=== PATIENT | female | born 1945 | race Caucasian/White ===

== ENCOUNTER 2019-10-17 10:09 | Emergency (ER) | payer MEDICARE, SELFPAY ==
[2019-10-17 10:20] VITALS: BP 178/78; PULSE 83; RESP 16; TEMP 36.8; O2SAT 95
[2019-10-17 10:33] VITALS: RESP 16
--- NOTE | 2019-10-17 10:45 | DI.US_ITS ---
EXAM: US LOWER EXTREMITY VENOUS RT CLINICAL HISTORY: pain/sweling. TECHNIQUE: Ultrasound performed using standard protocol. COMPARISON: No exams were available for comparison FINDINGS: Duplex venous ultrasound was performed according to the usual protocol. The deep veins are freely com pressible throughout and there is normal flow augmentation with manual calf compression. 2D and Doppl er evaluation are unremarkable. IMPRESSION: No evidence of deep venous thrombosis of the right lower extremity DATA REPOSITORY:
--- NOTE | 2019-10-17 10:45 | DI.RAD_ITS ---
EXAM: XR KNEE RT 4V+ CLINICAL HISTORY: Lateral pain TECHNIQUE: COMPARISON: No exams were available for comparison FINDINGS: Four views were obtained. No bony or soft tissue abnormality seen. IMPRESSION:
--- NOTE | 2019-10-17 10:51 | ED.GENADUL_ITS ---
Discharge Plan Disposition Patient Disposition: HOME Condition: Stable Discharge Details Chief Complaint: Vascular Clinical Impression: Knee pain Primary Care Provider: Carisa,Local ED Provider: Miguel Lopez Home Meds and New Rx's Prescriptions: Continued multivitamin Tablet 1 tab PO DAILY RF: 0 aspirin 81 mg Tablet,Delayed Release (Dr/Ec) 81 mg PO DAILY RF: 0 rosuvastatin [Crestor] 5 mg Tablet 5 mg PO DAILY RF: 0 metoprolol tartrate 25 mg Tablet 12.5 mg PO PRNRF: 0 calcium carbonate-vitamin D3 [Calcium 500 + D] 500 mg(1,250mg) -200 unit Tablet 1 tab PO DAILY RF: 0 Discharge Instructions Instructions: Knee Pain (ED) Additional Instructions: Rest, elevate, cool compresses every 2 hours for 20 days. [id number] medications as directed for symptomatic control. Advance activity as tolerated. I have given you the name and number of our local orthopedic, I do recommend following up in the next 2 weeks if symptoms are not improving with conservative therapy. I have also placed you on the care management team to help expedite outpatient care and local primary care follow-up. Referrals: Don Mendes MD [ [facility] STAFF PHYSICIAN] - Medical Decision Making 74-year-old female who has a second home here from [place] presents after injuring her right knee roughly 10 days ago. Certainly appears musculoskeletal in nature however she is concerned about a DVT. Will obtain ultrasound. We will also obtain x-ray of the right knee for further evaluation. We will also give her a referral to orthopedics and place her on the care management list to help expedite outpatient care seeing she is here for nearly 4 months out of the year. Ultrasound of right leg and x-ray of right knee unremarkable per radiologist. Discussed findings with patient. She is relieved and has no additional questions or concerns. As above we will provide a referral to orthopedics and will place her on the care management list. Patient will continue to take tozh-oxz-xcqigvi medications present meta control, declined crutches. Imaging Data Radiologic Study: Attestation: I personally reviewed and interpreted this imaging study as follows: Radiologist's impression: Ultrasound of right lower extremity and x-ray right knee unremarkable per radiology HPI General Mode of arrival: ambulatory . Date/Time Provider Initiated Documentation: 10/17/19 10:13 . Limitations to Documentation: no limitations . Information obtained by: patient . HPI Narrative: This is a 74-year-old female who reports 10 days ago leaning over, injuring her right lateral knee on the banister of a stair, direct blow and twisting mechanism. She reports she was unable to bear weight for the next 24-36 hours and since then the area has slowly gotten better. Now she notes some discomfort to her right calf in the to p of her right foot, she is concerned of a DVT. Denies history of DVT. Denies any chest pain or shortness of breath. Reports the pain is mild at rest worse with weightbearing. Denies fever, rash, pain in any other joint. Related Data Home Medications Medication Instructions Recorded Confirmed aspirin 81 mg PO DAILY 10/17/19 10/17/19 calcium carbonate-vitamin D3 1 tab PO DAILY 10/17/19 10/17/19 [Calcium 500 + D] metoprolol tartrate 12.5 mg PO PRN 10/17/19 multivitamin 1 tab PO DAILY 10/17/19 10/17/19 rosuvastatin [Crestor] 5 mg PO DAILY 10/17/19 10/17/19 Allergies Allergy/AdvReac Type Severity Reaction Status Date / Time No Known Allergies Allergy Unverified 10/17/19 10:24 General Stated Complaint: Orthopedic KEITH: 3 Review of Systems Constitutional Constitutional: Denies fever(s) and Denies weakness Cardiovascular Cardiovascular: Denies chest pain and Denies dyspnea Respiratory Respiratory: Denies cough and Denies dyspnea Musculoskeletal Musculoskeletal: Denies numbness and Denies tingling Integumentary/Breasts Skin/Breast: Denies rash Neurologic Neurologic: Denies numbness, Denies tingling and Denies weakness [facility] Social History Smoking/Tobacco Use Status: Never Alcohol Intake: current Alcohol Intake frequency: 0-2 drinks per day Alcohol type: wine Substance use type: does not use Exam Const General: cooperative, healthy appearing, comfortable and no acute distress Orientation: alert, awake and oriented x3 HENMT Head: normal to inspection, normocephalic and atraumatic Mouth: moist mucous membranes Eyes Conjunctivae: conjunctivae normal Neck Neck: normal visual inspection, trachea midline and supple Resp Effort & Inspection: normal respiratory effort and able to speak in complete sentences Auscultation: clear to auscultation bilaterally Cardio Rate: regular rate Rhythm: regular rhythm Skin General skin exam: no rashes or lesions noted Neuro General: patient alert, patient awake, moves all extremities and no focal motor deficits Sensory Exam: no sensory deficits noted Extrem Right lower extremity: normal capillary refill and knee Details: tenderness Location: of the lateral joint line, normal ROM, knee ligament exam normal and other (Positive Homans sign); no swelling, no deformity and no unusual warmth Psych Appearance: grossly normal Mental Status: mental status grossly normal Course Vital Signs Vital signs: Vital Signs Temperature 36.8 C 10/17/19 10:20 Pulse 83 10/17/19 10:20 Respiratory Rate 16 10/17/19 10:20 Blood Pressure 178/78 H 10/17/19 10:20 Pulse Oximetry 95 10/17/19 10:20 Temperature 36.8 C 10/17/19 10:20 Temperature Source Skin 10/17/19 10:20 Pulse 83 10/17/19 10:20 Respiratory Rate 16 10/17/19 10:33 Respiratory Effort Non-Labored 10/17/19 10:33 Respiratory Depth Normal 10/17/19 10:33 Respiratory Pattern Normal 10/17/19 10:33 Blood Pressure 178/78 H 10/17/19 10:20 Blood Pressure Position Sitting 10/17/19 10:20 Pulse Oximetry 95 10/17/19 10:20 Oxygen Delivery Method Room Air 10/17/19 10:20 Oxygen Flow Rate 0 10/17/19 10:20 Pain Level 6 10/17/19 10:33
--- NOTE | 2019-10-17 11:43 | NUR.NOTE ---
Nursing Note: Referral for PCP for summer residency given to Integrity Manager. Batsheva Price
[2019-10-17 12:17] VITALS: BP 178/78; PULSE 80; RESP 16; TEMP 36.8; O2SAT 95
--- NOTE | 2019-10-18 09:42 | PDOC.ERCMPRO ---
- If Service Date Differs Date of service: 10/18/19 Time of Service: 09:42 Care Management Progress Note At the request of ED provider, CM coordinates a referral to Dr. Yap (teledoc) of [facility] to assist [place] in establishing care with a local PCP. [place] reportedly injured her knee and requires a follow-up to ED visit within 3 weeks.
== END 2019-10-17 12:18 | disposition home or self-care (01) ==
PROVIDERS: Emergency Provider Physician Assistant; PCP Internal Medicine
DX: S89.91XA Unspecified injury of right lower leg, initial encounter (principal); W22.8XXA Striking against or struck by other objects, initial encounter; X50.9XXA Other and unspecified overexertion or strenuous movements or postures, initial encounter; M79.661 Pain in right lower leg
CPT/HCPCS: 99284; 73564; 93971

== ENCOUNTER 2019-10-20 11:34 | Outpatient (CLI) | payer MEDICARE, SELFPAY ==
[2019-10-23 18:59] LABS: SARS-CoV-2 RNA Undetected (Undetected); SARS-CoV-2 Specimen Source Nasopharynx
== END 2019-10-20 11:54 ==
PROVIDERS: Visit Provider Family Medicine
DX: Z03.818 Encounter for observation for suspected exposure to other biological agents ruled out (principal)
CPT/HCPCS: U0003

== ENCOUNTER 2021-11-19 08:59 | Emergency (ER) | payer MEDICARE, SELFPAY ==
[2021-11-19 09:15] VITALS: BP 187/75; PULSE 77; RESP 14; TEMP 37.6; O2SAT 98
--- NOTE | 2021-11-19 09:30 | W.ED.GENAD ---
Discharge Plan Disposition Patient Disposition: HOME Condition: Improving Discharge Details Clinical Impression: Distal radius fracture, left Primary Care Provider: CarisaLocal ED Provider: Chava Coreas Home Meds and New Rx's Prescriptions: Continued multivitamin Tablet 1 tab PO DAILY aspirin 81 mg Tablet,Delayed Release (Dr/Ec) 81 mg PO DAILY rosuvastatin [Crestor] 5 mg Tablet 5 mg PO DAILY metoprolol tartrate 25 mg Tablet 12.5 mg PO PRN calcium carbonate-vitamin D3 [Calcium 500 + D] 500 mg(1,250mg) -200 unit Tablet 1 tab PO DAILY losartan 25 mg Tablet 25 mg PO BID Discharge Instructions Instructions: Wrist Fracture in Adults (ED) Additional Instructions: Please follow-up with [facility] November 24 at 11 AM. The office #[phone]. Keep the arm elevated above the level of the heart to reduce pain and swelling. Sling as needed for comfort while awake and out of bed. Tylenol as needed for pain. May use ibuprofen as needed for pain. May use the provided hydrocodone with 325 mg of acetaminophen if needed for severe or breakthrough pain. Do not take this medication at the same time as taking other acetaminophen. Return if you develop cold/blue/numbness of the fingertips, increasing pain, or any other acute concerns. 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 She lives at [facility] [place] and is here until [place]. She was planning pickleball, stumbled twisting her left ankle and falling on outstretched left wrist. She did not strike her head or lose consciousness. No neck/chest/back injury. She had immediate pain and deformity of the left wrist. No numbness or weakness. She presents with left wrist dinner fork deformity. She also has mild tenderness of the left fifth metatarsal. Referred for x-ray. This reveals a left radius fracture that is comminuted and mildly impacted. This is discussed with Dr. Mello, and the patient was placed in sugar-tong splint and she may follow-up in orthopedics. X-ray was obtained of L Foot with no evidence of fracture. Patient stable and improving. She is consented for the use of a small number of narcotic analgesia if needed. She will follow-up in orthopedic clinic on November 24. HPI General Mode of arrival: ambulatory. Date/Time Provider Initiated Documentation: 11/19/21 09:01. Limitations to Documentation: no limitations. Information obtained by: patient. History of Present Illness 76 year old F presents to the emergency department with the chief complaint of Left wrist pain after fall on outstretched hand, described as moderate, Quality is described as dull and constant, and is localized to the left and upper extremity. Patient reports no radiation. Patient started experiencing this hour(s) and it has been constant. Rest improves symptom(s), Movement worsens symptoms . Patient did receive the following treatments prior to arrival, cold therapy Related Data Home Medications Medication Instructions Recorded Confirmed aspirin 81 mg tablet,delayed 81 mg PO DAILY 10/17/19 11/19/21 release calcium carbonate 500 mg-vitamin 1 tab PO DAILY 10/17/19 11/19/21 D3 5 mcg (200 unit) tablet (Calcium 500 + D) metoprolol tartrate 25 mg tablet 12.5 mg PO PRN 10/17/19 multivitamin 1 tab PO DAILY 10/17/19 11/19/21 rosuvastatin 5 mg tablet (Crestor) 5 mg PO DAILY 10/17/19 11/19/21 losartan 25 mg tablet 25 mg PO BID 11/19/21 11/19/21 Allergies Allergy/AdvReac Type Severity Reaction Status Date / Time Penicillins Allergy Hives Unverified 11/19/21 09:18 General Stated Complaint: Orthopedic KEITH: 3 Review of Systems Narrative: Rolled her left ankle. No other injury. No numbness or tingling. Otherwise well. 7 systems reviewed and otherwise negative PFSH All Active Problems (Updated 11/19/21 @ 10:30 by Chava Coreas MD) Distal radius fracture, left (Acute) Social History Smoking/Tobacco Use Status: Never Smoking risk assessment performed?: Yes Alcohol Intake: current Alcohol Intake frequency: 0-2 drinks per day Alcohol type: wine Substance use type: does not use Do you feel safe at home: Yes Do you feel safe in your relationship?: Yes Exam Narrative Exam Narrative: GEN: awake, alert, oriented 3. Pleasant, well groomed, interactive. HEAD: Normocephalic, atraumatic EYES: PERRL, EOMI NECK: Full ROM, no CHARLENE, no menigismus CHEST/RESP: Nontender, clear to auscultation bilateral, no wheeze/rhonchi/rales CARDIOVASCULAR: RRR, no murmur, rub zoie. 2+ Rad pulse bilateral EXT: Full range of motion left wrist. Dorsal tenderness and swelling. Demonstrates normal distal sensation and motor function of radial/ulnar/median nerves; capillary refill less than 2secs Neuro: Grossly normal neurologic exam, conversant, interactive. Psych: Speech fluent, thoughts congruent, affect normal Course Vital Signs Vital signs: Vital Signs Temperature 37.6 C H 11/19/21 09:15 Pulse 77 11/19/21 09:15 Respiratory Rate 14 11/19/21 09:15 Blood Pressure 187/75 H 11/19/21 09:15 Pulse Oximetry 98 11/19/21 09:15 Temperature 37.6 C H 11/19/21 09:15 Temperature Source Temporal Artery Scan 11/19/21 09:15 Pulse 77 11/19/21 09:15 Respiratory Rate 14 11/19/21 09:15 Respiratory Effort Non-Labored 11/19/21 09:19 Blood Pressure 187/75 H 11/19/21 09:15 Blood Pressure Position Supine 11/19/21 09:15 Pulse Oximetry 98 11/19/21 09:15 Oxygen Delivery Method Room Air 11/19/21 09:15 Oxygen Flow Rate 0 11/19/21 09:15 Pain Level 10 11/19/21 09:19 Procedures Orthopedic Splinting/Casting Injury #1: Side: left Upper Extremity Injury Location: wrist Upper Extremity Immobilizer: sugartong splint PAWSS Have you Been Recently Intoxicated or Drunk Within the Last 30 days?: No Have you Ever Experienced Previous Episodes of Alcohol Withdrawal?: No Have you ever Experienced Withdrawal Seizures?: No Have you ever Experienced Delirium Tremens(DT)s?: No Have you ever undergone Alcohol Rehabilitation Treatment (i.e, inpt ot outpatient treatment programs)?: No Have you ever Experienced Blackouts?: No Have you ever Combined Alcohol with other Downers within the last 90 days?: No Have you ever Combined Alcohol with any other Substance of Abuse during the last 90 days?: No Positive Blood Alcohol level on Presentation? [PCS.BAL]: No Evidence of Increased Autonomic Activity (i.e. HR>120, tremor, sweating, agitation, nausea)?: No Result: 0
--- NOTE | 2021-11-19 09:42 | DI.RAD_ITS ---
Exam(s) XR WRIST LT COMPLETE EXAM: XR WRIST LT COMPLETE CLINICAL HISTORY: deformed wrist. TECHNIQUE: 2D digital imaging was performed of the left wrist. Four images were obtained. PA, obli que and lateral views were obtained. COMPARISON: No exams were available for comparison FINDINGS: BONES: There is an acute comminuted intra-articular fracture of the distal left radius. The fracture is mildly impacted. There also appears to be a mildly displaced ulnar styloid process fracture. JOINTS: The carpal bones are normally aligned. SOFT TISSUE: Normal. IMPRESSION: 1. Comminuted, mildly impacted intra-articular fracture of the distal radius. 2. Question of ulnar styloid process fracture. DATA REPOSITORY: RADIATION DOSE DELIVERED:
[2021-11-19] MEDS: Acetaminophen 500 MG TAB 1000 MG PO (09:51)
--- NOTE | 2021-11-19 10:20 | DI.RAD_ITS ---
Exam(s) XR FOOT LT COMPLETE EXAM: XR FOOT LT COMPLETE CLINICAL HISTORY: lateral pain. TECHNIQUE: 2D digital imaging was performed of the left foot. Three images were obtained. AP, obli que and lateral views were obtained. COMPARISON: No exams were available for comparison FINDINGS: BONES: No acute fracture is present. No bony destructive lesion is seen. JOINTS: No dislocation present. SOFT TISSUE: Normal. IMPRESSION: Unremarkable radiographs of the left foot. DATA REPOSITORY: RADIATION DOSE DELIVERED:
== END 2021-11-19 10:42 | disposition home or self-care (01) ==
PROVIDERS: Emergency Provider Emergency Medicine
DX: S52.502A Unspecified fracture of the lower end of left radius, initial encounter for closed fracture (principal); G89.11 Acute pain due to trauma; M79.672 Pain in left foot; W19.XXXA Unspecified fall, initial encounter; X50.1XXA Overexertion from prolonged static or awkward postures, initial encounter
CPT/HCPCS: 29125; 99284; 73110; 73630

== ENCOUNTER 2021-11-24 11:50 | Outpatient (CLI) | payer MEDICARE, SELFPAY ==
--- NOTE | 2021-11-24 11:30 | DI.RAD_ITS ---
Exam(s) XR WRIST LT LIMITED EXAM: XR WRIST LT LIMITED CLINICAL HISTORY: eval L wrist frx TECHNIQUE: COMPARISON: CR XR WRIST LT COMPLETE from 11/19/2021 FINDINGS: Two views were obtained and show previous described fracture of the distal radius with associated uln ar styloid fracture. No gross interval change in alignment of the fracture fragments comparison with prior examination of November 19. IMPRESSION: RADIATION DOSE DELIVERED: Total DLP
== END 2021-11-24 11:51 | disposition home or self-care (01) ==
LOC: DIORS 11:50
PROVIDERS: Visit Provider Student in an Organized Health Care Education/Training Program
DX: S52.502D Unspecified fracture of the lower end of left radius, subsequent encounter for closed fracture with routine healing (principal); X58.XXXD Exposure to other specified factors, subsequent encounter; S52.572A Other intraarticular fracture of lower end of left radius, initial encounter for closed fracture
CPT/HCPCS: 99213; 73100

== ENCOUNTER 2021-11-24 12:23 | Outpatient (CLI) | payer MEDICARE, SELFPAY ==
[2021-11-24 14:30] LABS: Source Nasal/Nares
[2021-11-24 16:43] LABS: COVID-19 PCR Negative (Negative)
== END 2021-11-24 12:24 | disposition home or self-care (01) ==
LOC: LBO 12:23
PROVIDERS: Visit Provider Student in an Organized Health Care Education/Training Program
DX: Z20.822 Contact with and (suspected) exposure to COVID-19 (principal); Z01.818 Encounter for other preprocedural examination
CPT/HCPCS: 87635; 99213; 73100

== ENCOUNTER 2021-11-25 09:39 | Day surgery (SDC) | payer MEDICARE, SELFPAY ==
--- NOTE | 2021-11-25 09:50 | PDOC.DSDIS_ITS ---
Discharge Plan Disposition Patient Disposition: HOME Condition: Good Discharge Details Reason For Visit: Left distal radius fracture Attending Provider: Don Mendes Primary Care Provider: ,Local Home Meds and New Rx's Prescriptions: New acetaminophen 500 mg tablet 500 mg PO Q6H PRN (Reason: pain) Qty: 60 2RF ibuprofen 600 mg tablet 600 mg PO TID PRN (Reason: pain) Qty: 60 0RF oxycodone 5 mg tablet 5 mg PO Q6H PRN (Reason: severe post-operative pain) Qty: 6 0RF Rx Instructions: Take one tablet up to every 6 hours as needed for severe pain Continued multivitamin Tablet 1 tab PO DAILY aspirin 81 mg Tablet,Delayed Release (Dr/Ec) 81 mg PO DAILY rosuvastatin [Crestor] 5 mg Tablet 5 mg PO DAILY metoprolol tartrate 25 mg Tablet 12.5 mg PO PRN PRN calcium carbonate-vitamin D3 [Calcium 500 + D] 500 mg(1,250mg) -200 unit Tablet 1 tab PO DAILY losartan 25 mg Tablet 25 mg PO BID Discontinued hydrocodone-acetaminophen 5-325 mg tablet 1 tab PO Q4H MDD 30mg PRN (Reason: pain) Qty: 10 0RF Discharge Instructions Additional Instructions: Wrist Fracture Fixation Discharge Instructions Activity: You should keep the hand/wrist elevated as much as possible for the first few days. You may use the other fingers as tolerated but avoid trying to do too much too soon. You may perform light activities with the splint in place. Dressing/Cast: Your splint should stay in place at all times. Do NOT get it wet. You may loosen the PAGE wrap if you feel it is too tight and then re-wrap more loosely. Medications: - You should take Tylenol and Ibuprofen for baseline pain control. - You have been prescribed a stronger pain medication, Oxycodone, for breakthrough pain. - You may apply ice over the wrist, just double bag so it doesn't get wet. Follow-up: 10-14 days Referrals: Don Mendes MD [ [facility] STAFF PHYSICIAN] - Equipment/Supplies: Splint and Sling Activity:: Elevate Remove Dressings/Wound Care:: Do Not Remove Shower/Bathe:: Cover Diet:: As Tolerated Discharge Orders Discharge Orders: Discharge Order (Routine); Ordered 11/25/21 Ordered By: Minerva Jerez DS: Diagnosis Discharge Diagnosis (1) Intra-articular fracture of distal end of left radius with volar angulation: Status: Acute
[2021-11-25 10:07] VITALS: BP 162/66; PULSE 68; RESP 16; TEMP 36.4; O2SAT 98
[2021-11-25] MEDS: Lactated Ringers 1,000 ML 80 ML IV ×2 (10:13→13:55)
[2021-11-25 10:36] VITALS: BP 133/65; PULSE 78; RESP 16; TEMP 36.5; O2SAT 99
--- NOTE | 2021-11-25 11:00 | ANES.PREOP_ITS ---
General Info Date of Service Date Performed: 11/25/21 Height: 5 ft 4 in Weight: 61.9 kg Body Mass Index (BMI): 23.4 Surgical Procedure: Operation Date: 11/25/21 13:40 Proposed Procedure Side Surgeon p Wrist ORIF Distal Radius Left Don Mendes MD Meds Allergies and Home Medications Allergies Allergy/AdvReac Type Severity Reaction Status Date / Time Penicillins Allergy Hives Verified 11/25/21 09:46 Home Medication Medication Instructions Recorded aspirin 81 mg tablet,delayed 81 mg PO DAILY 10/17/19 release calcium carbonate 500 mg-vitamin 1 tab PO DAILY 10/17/19 D3 5 mcg (200 unit) tablet (Calcium 500 + D) metoprolol tartrate 25 mg tablet 12.5 mg PO PRN PRN 10/17/19 multivitamin 1 tab PO DAILY 10/17/19 rosuvastatin 5 mg tablet (Crestor) 5 mg PO DAILY 10/17/19 losartan 25 mg tablet 25 mg PO BID 11/19/21 acetaminophen 500 mg tablet 500 mg PO Q6H PRN pain #60 tabs 11/25/21 ibuprofen 600 mg tablet 600 mg PO TID PRN pain #60 tabs 11/25/21 oxycodone 5 mg tablet 5 mg PO Q6H PRN severe 11/25/21 post-operative pain #6 tabs Current Visit Medications: Current Medications Generic Name Dose Route Start Last Admin Trade Name Freq PRN Reason Stop Dose Admin Acetaminophen 650 mg 11/25/21 09:49 Acetaminophen 325 Mg Tab PO Q4H PRN PRN Ringer's Solution 1,000 mls @ 80 mls/hr 11/25/21 06:00 IV 12/24/21 23:59 INFUSION [facility] Cefazolin Sodium/Dextrose 2 gm in 50 mls @ 100 mls/hr 11/25/21 06:00 Ancef Duplex IVPB 11/25/21 16:00 PREOP [facility] IV Miscellaneous Supplies 1 each 11/25/21 06:00 Iv Access IV 12/24/21 23:59 DIRECTED ESTEFANY Oxycodone HCl 5 mg 11/25/21 09:51 Oxycodone 5 Mg Tab PO Q3H PRN PRN Pain Sodium Chloride 0 ml 11/25/21 06:00 Normal Saline Flush 10 Ml Syr IV 12/24/21 23:59 PRN PRN Sodium Chloride 0 ml 11/25/21 06:00 Normal Saline 10 Ml Vial IJ 12/24/21 23:59 DIRECTED PRN Sterile Water 0 ml 11/25/21 06:00 Water,Injection,Sterile 10 Ml Vial IJ 12/24/21 23:59 DIRECTED PRN PFSH Active Problems Active Problems: Problem Status Onset Code Distal radius fracture, left S52.502A Intra-articular fracture of distal end of left radius with volar angulation S52.572A Medical History Medical History HLD (hyperlipidemia) HTN (hypertension) Surgical History Surgical History (Updated 11/25/21 @ 09:58 by Fabiola Montoya) History of cataract surgery Status post Mohs surgery Tobacco Smoking/Tobacco Use Status: Never Alcohol Alcohol Intake: current Alcohol intake frequency: 0-2 drinks per day Alcohol type: wine Substance Use Substance use type: does not use Vital Signs and Lab Results Vital Signs Most Recent Vital Signs in EMR: Most Recent Vital Signs Temp Pulse Resp BP Pulse Ox 36.5 C 78 16 133/65 99 11/25/21 10:36 11/25/21 10:36 11/25/21 10:36 11/25/21 10:36 11/25/21 10:36 Lab Results Blood Type / Crossmatch: No Data to Display Complete Blood Count: No Data to Display Complete Metabolic Panel: No Data to Display Liver Function Panel: No Data to Display Coagulation Panel: No Data to Display Cardiac Panel: No Data to Display Arterial Blood Gas: No Data to Display Venous Blood Gas: No Data to Display Pancreas Panel: No Data to Display Thyroid Panel: 2 No Data to Display Infectious Disease: Coronavirus (COVID-19)(PCR) Negative (Negative) 11/24/21 12:25 Coronavirus 2019 Source Nasal/Nares 11/24/21 12:25 Blood Cultures: No Data to Display Toxicology Panel: No Data to Display Anesthesia Assessment and Plan Anesthesia History Personal History: No History of Anesthesia Complications Family History: No Family History of Anesthesia Complications Exercise Tolerance Exercise Tolerance: Metabolic Equivalents>4 Pertinent Negatives Pertinent Negatives: No Symptoms of GERD, No Major Cardiovascular Symptoms or Complaints and No Major Pulmonary Symptoms or Complaints Cardiac & Pulmonary Exam Cardiac Exam: Normal S1/S2 Heart Sounds Pulmonary Exam: Clear Bilateral Breath Sounds Implantable Cardiac Device Does patient have a Pacemaker or an ICD?: No Airway Exam Known Difficult Airway: No Mallampati Class: 2 Mouth Opening: Normal (> 3cm) Thyromental Distance: Greater than 3 cm Neck Range of Motion: Full ROM Neck Circumference: Normal Teeth Condition: Normal Dentition ASA Classification ASA Score: ASA 2 Emergency Case?: No NPO Status NPO Status: NPO Clears >2 hours, Solids >8 hours Anesthesia Plan Resuscitation Status: Full Code Anesthesia Technique: Primary Nerve Block Airway Planned: Natural Airway Monitors Used: Standard Monitors
[2021-11-25 11:01] VITALS: BMI 23.4
--- NOTE | 2021-11-25 11:07 | W.ANESNERVE ---
Nerve Block Single Injection Procedure Date and Time Date Performed: 11/25/21 Procedure Start: 10:38 Location Where Procedure Performed Procedure Location: Day Surgery Unit Reason Performed: Postoperative Analgesia Requesting Provider: Don Mendes Timeout Performed Timeout Performed: Yes Monitoring Used ECG, Blood Pressure, SpO2 and See EMR for corresponding vital signs Sterility Sterility: Hand Hygiene, Surgical Cap, Surgical Mask, Sterile Gloves and Chlorhexidine Sedation Given During Procedure Sedation Given (Indicate Dose Given): Versed IV Dose:: 2mg Patient Mental Status Patient Mental Status: Sedate with meaningful communication Nerve Block 1st Nerve Block: Laterality: Left Block Type: Supraclavicular Needle / Catheter Used: 80mm SonoPlex II Local Anesthetic Bolus (Indicate Dose Given): Lidocaine used for local infiltration of skin, Injected in 3-5ml increments after negative blood aspiration and Bupivacaine 0.5% Dose:: 20mL Additives (Indicate Dose Given): None Ultrasound: Sterile probe cover and gel used Ultrasound Image Saved?: Yes Nerve Stimulator: Not Used Paresthesia: None Procedure Tolerated: No Complications Procedure Outcome: Successful Performed By: Eliana Mcneil
--- NOTE | 2021-11-25 12:15 | DI.RAD_ITS ---
Exam(s) XR WRIST LT LIMITED EXAM: XR WRIST LT LIMITED CLINICAL HISTORY: LEFT DISTAL RADIUS FRACTURE TECHNIQUE: 2D and realtime digital imaging was performed. CONTRAST MATERIAL: Refer to procedure report. COMPARISON: CR XR WRIST LT LIMITED from 11/24/2021 FINDINGS: Fluoroscopy was provided for Dr. Mendes during the performance of a reduction and internal fixatio n of the distal radial fracture. Please refer to the procedure report for complete details. Ka,r=0.37 mGy IMPRESSION: RADIATION DOSE DELIVERED:
[2021-11-25] MEDS: ceFAZolin 2 GM/50 ML BAG IVPB (12:48)
[2021-11-25] MEDS: Lidocaine 1.5 % Pres-Free W/EPI 1/200,000 30 ML VIAL (13:12)
[2021-11-25 14:13] VITALS: BP 141/62; PULSE 68; RESP 18; TEMP 36.3; O2SAT 96
--- NOTE | 2021-11-25 14:18 | ROE_ITS ---
Date of service: 11/25/21 Time of Service: 14:05 Operative Note Operative Note DATE OF PROCEDURE: 11/25/21 PRE-OP DIAGNOSIS: Left Distal Radius Fracture POST-OP DIAGNOSIS: same PROCEDURE: Open Reduction and Internal Fixation of Left Distal Radius SURGEON: Don Mendes [employer] MACHINE OPERATOR: Minerva Jerez ANESTHESIA TYPE: MAC and Primary Nerve Block Refer to Anesthesia Record ESTIMATED BLOOD LOSS: 25 PATHOLOGY: none sent COMPLICATIONS: None Patient was transported to: same day Patient's condition: stable Indications: Pelon is a 76 year old female who I have seen for a distal radius fracture. Given the deformity, displacement, fracture pattern, and effect on daily function, I recommended surgical fixation. I reviewed the risk of the procedure to include bleeding, infection co-pay, stiffness, damage to nerves and vessels, damage to muscles and tendons, malunion, nonunion, hardware prominence, tendon rupture, need for repeat procedures. Despite these risks, the patient elected to proceed. Findings: There is a distal radius fracture which had 2 intra-articular portions. It was reduced and fixed with a Synthes volar locking plate. Procedure Description: [place] was greeted in the preoperative holding area. The correct patient and site was confirmed and marked. The history and physical was updated. The consent was reviewed the patient and signed. The patient was administered regional anesthetic, supraclavicular block, in the DSU. The patient was taken to the operating room and placed in the supine position. All bony problems were well- padded. The left arm was placed onto a radiolucent hand table. A nonsterile tourniquet was placed high up on the arm but not used. Prophylactic antibiotics in the form of cefazolin were administered. The left arm was prepped with ChloraPrep and draped in a standard fashion. A timeout was performed for safe surgery. The proposed surgical site was injected with 1.5% lidocaine with epinephrine. A standard longitudinal incision was made overlying the flexor carpi radialis tendon starting at the distal wrist crease and moving proximally. The skin was incised sharply. The flexor carpi radialis tendon and its sheath is identified. The sheath was opened. The tendon was moved ulnarly in the floor of the sheath was incised. Blunt dissection the flexor pollicis longus muscle belly and tendon were also made radially exposing the pronator quadratus and the distal radius. The printer quadratus was elevated with an ulnar-based flap. This exposed the volar distal radius and the fracture. A draper elevator was used for full exposure of the volar surface of the distal radius. The primary fracture line was exposed. Using a series of elevators, curettes, and knife, the fracture was fully debrided of any fibrous tissue and callus formation. There were 2 main fracture line through the volar aspect of distal radius. One was incomplete, the more proximal 1. The other was more complete and more distal. There is volar subluxation of the carpus. This is able to be reduced with dorsally directed pressure. The radial styloid was also flattened but with traction of the thumb I was able to pull the radial styloid out to correct position. This was confirmed with fluoroscopy. An appropriately sized Synthes volar locking plate was then placed onto the bony surface of the distal radius. A single K wire was placed through the distal end. And a K wire was placed through the proximal aspect of the plate to hold in gross position. I maintain pressure on the proximal aspect the plate for reduction. Fluoroscopy was once again used to confirm appropriate positioning of the plate on the distal radius. Given the volar displaced fracture pattern I went ahead and placed a 0.7 mm cortex screw in the sliding hole of the plate to reduce the plate onto the bone and buttress the fracture fragment while maintaining reduction. The screw was placed with excellent reduction of the plate down to the bone. X-ray was once again confirmed that the plate is in g ood position and the fracture was reduced. I then placed a nonlocking 2.4 millimeter screw in the distal row of screws to help reduce the distal radius to the plate. Once again, this was confirmed to be in good position. I then placed locking screws in the distal row of the plate. Given the lack of comminution I only placed the distal row of screws. This was confirmed to be in a good position on the x-ray. The cortical screw did not have as much purchase I would like and therefore it was removed for a locking screw. The 2 empty holes of the proximal plate were then filled with locking 2.7 millimeter screws. Final x-rays were obtained which demonstrated adequate reduction and positioning of hardware. The dorsal sunrise view was also obtained to ensure correct sizing of screws. There was noted to be one of the radial screws being too long and this was treated out for a shorter screw. Repeat dorsal sunrise view showed adequate screw length. The wound was then thoroughly irrigated. The pronator quadratus was reapproximated with a 2-0 Vicryl. The deep dermal layer was closed with a 2-0 Vicryl. The skin was closed with running, subcuticular 4-0 Monocryl. The wound was dressed with skin glue, 4 x 4's, web roll. A short arm splint was applied. At the end the case all counts are correct. Patient was transferred back to the DSU in a stable condition.
[2021-11-25 14:37] VITALS: BP 141/63; PULSE 69; RESP 18; TEMP 36.3; O2SAT 99
--- NOTE | 2021-11-25 15:37 | W.ANESPOSTOP ---
Postoperative Evaluation Date, Time and Location Date Performed: 11/25/21 Time Performed: 14:45 Patient Location: Day Surgery Unit Vital Signs Most Recent Imported Vital Signs: Most Recent Vital Signs Temp Pulse Resp BP Pulse Ox 36.3 C L 69 18 141/63 H 99 11/25/21 14:37 11/25/21 14:37 11/25/21 14:37 11/25/21 14:37 11/25/21 14:37 Pain Score Most Recent Pain Score: Most Recent Pain Score Pain Level 0 11/25/21 14:37 Assessment Mental Status: Awake (Alert & Oriented to Patient Baseline) Airway and Respiratory Function: Patent airway with normal (patient baseline) respiratory exam Cardiovascular Function: Hemodynamically Stable Hydration Status: Adequately Hydrated Nausea & Vomiting: No Nausea or Vomiting Pain: Pt. Denies Any Pain Peripheral Nerve Block: Regional nerve block not resolved at time of post operative discharge
== END 2021-11-25 15:15 | disposition home or self-care (01) ==
PROVIDERS: Visit Provider Student in an Organized Health Care Education/Training Program
PROC: (CPT 25608; principal; 2021-11-25 13:30)
DX: S52.572A Other intraarticular fracture of lower end of left radius, initial encounter for closed fracture (principal); I10 Essential (primary) hypertension; E78.5 Hyperlipidemia, unspecified; X58.XXXA Exposure to other specified factors, initial encounter
CPT/HCPCS: 25608; C1776; 76942; 73100; J0690; J2250

== ENCOUNTER 2021-12-08 08:44 | Outpatient (CLI) | payer MEDICARE, SELFPAY ==
--- NOTE | 2021-12-08 07:45 | DI.RAD_ITS ---
Exam(s) XR WRIST LT LIMITED EXAM: XR WRIST LT LIMITED CLINICAL HISTORY: 1st post op ORIF L DISTAL RADIUS. TECHNIQUE: 2D digital imaging was performed. COMPARISON: CR XR WRIST LT LIMITED from 11/24/2021 CR XR WRIST LT LIMITED from 11/25/2021 FINDINGS: Two views There is been interval open reduction internal fixation with placement volar fixation plate across th e distal radial fracture site. This was performed on 11/25/2021 and appears stable, with the fractur e fragments in satisfactory position alignment. Ulnar styloid fracture also again noted. Scaphoid u nremarkable. Scapholunate distance is normal. IMPRESSION: Satisfactory appearance of radius fixation plate. Satisfactory alignment of the fracture fragments. Ulnar styloid base fracture again noted DATA REPOSITORY: RADIATION DOSE DELIVERED:
--- NOTE | 2021-12-08 08:00 | DI.RAD_ITS ---
Exam(s) XR ELBOW LT COMPLETE EXAM: XR ELBOW LT COMPLETE CLINICAL HISTORY: left elbow pain. TECHNIQUE: 2D digital imaging was performed. COMPARISON: No exams were available for comparison FINDINGS: 3 views No evidence of fracture nor obvious joint effusion. There is no swelling of the olecranon bursa. Ra dial head and neck unremarkable. Epicondyles unremarkable. On the frontal view there is a small sub millimeters size calcification in the joint space noted, just medial to the capitellum. There is, h owever, no osteochondral defect evident at the level of the capitellum nor at the level of the trochl ea. IMPRESSION: Tiny sub millimeter calcific body in the joint space. No acute fracture. No joint effusion. DATA REPOSITORY: RADIATION DOSE DELIVERED:
== END 2021-12-08 08:45 | disposition home or self-care (01) ==
LOC: DIORS 08:44
PROVIDERS: Visit Provider Physician Assistant
DX: S52.502A Unspecified fracture of the lower end of left radius, initial encounter for closed fracture (principal); X58.XXXA Exposure to other specified factors, initial encounter
CPT/HCPCS: 73080; 73100

== ENCOUNTER 2021-12-26 09:29 | Outpatient (CLI) | payer MEDICARE, SELFPAY ==
--- NOTE | 2021-12-26 08:45 | DI.RAD_ITS ---
Exam(s) XR WRIST LT LIMITED EXAM: XR WRIST LT LIMITED CLINICAL HISTORY: s/p ORIF L DISTAL RADIUS TECHNIQUE: COMPARISON: CR XR WRIST LT LIMITED from 12/08/2021 FINDINGS: Two views were obtained and show plate and screw fixation in the distal radius, no change in alignmen t comparison with examination of December 08 IMPRESSION: RADIATION DOSE DELIVERED: Total DLP
== END 2021-12-26 09:30 | disposition home or self-care (01) ==
LOC: DIORS 09:29
PROVIDERS: Visit Provider Student in an Organized Health Care Education/Training Program
DX: S52.572A Other intraarticular fracture of lower end of left radius, initial encounter for closed fracture (principal); X58.XXXA Exposure to other specified factors, initial encounter
CPT/HCPCS: 73100

== ENCOUNTER 2022-01-12 09:15 | Outpatient (CLI) | payer MEDICARE, SELFPAY ==
--- NOTE | 2022-01-12 08:45 | DI.RAD_ITS ---
Exam(s) XR WRIST LT LIMITED EXAM: XR WRIST LT LIMITED INDICATION: f/u L DISTAL RADIUS FRACTURE. COMPARISON: CR XR WRIST LT LIMITED from 11/25/2021 CR XR WRIST LT LIMITED from 12/08/2021 CR XR WRIST LT LIMITED from 12/26/2021 TECHNIQUE: 2D digital imaging was performed. Two views. FINDINGS: Bones: There has been no change in fracture or hardware alignment. Bones appear osteopenic. SOFT TISSUE: Mild swelling DATA REPOSITORY: RADIATION DOSE DELIVERED:
== END 2022-01-12 09:16 | disposition home or self-care (01) ==
LOC: DIORS 09:16
PROVIDERS: Visit Provider Student in an Organized Health Care Education/Training Program
DX: S52.572A Other intraarticular fracture of lower end of left radius, initial encounter for closed fracture (principal); X58.XXXA Exposure to other specified factors, initial encounter; M25.522 Pain in left elbow
CPT/HCPCS: 73100

== ENCOUNTER 2022-02-05 13:38 | Outpatient (CLI) | payer MEDICARE, SELFPAY ==
--- NOTE | 2022-02-05 09:00 | DI.RAD_ITS ---
Exam(s) XR WRIST LT LIMITED EXAM: XR WRIST LT LIMITED CLINICAL HISTORY: s/p left ORIF. TECHNIQUE: 2D digital imaging was performed of the left wrist. Two images were obtained. PA and la teral views were obtained. COMPARISON: CR XR WRIST LT LIMITED from 01/12/2022 FINDINGS: BONES: There has been no change in the orthopedic hardware or bony alignment. No new fractures ident ified. No bony destructive lesion is seen. The bones are osteopenic JOINTS: The carpal bones are normally aligned. SOFT TISSUE: Soft tissue swelling of the wrist has decreased. IMPRESSION: Stable examination. DATA REPOSITORY: RADIATION DOSE DELIVERED:
== END 2022-02-05 13:39 | disposition home or self-care (01) ==
LOC: DIORS 13:38
PROVIDERS: Visit Provider Physician Assistant
DX: S52.572D Other intraarticular fracture of lower end of left radius, subsequent encounter for closed fracture with routine healing (principal); X58.XXXD Exposure to other specified factors, subsequent encounter; M25.522 Pain in left elbow
CPT/HCPCS: 73100

== ENCOUNTER 2022-09-16 16:10 | Outpatient (REF) | payer MEDICARE, SELFPAY ==
[2022-09-16 21:12] LABS: Source Nasal/Nares
[2022-09-16 22:11] LABS: COVID-19 PCR Negative (Negative)
== END 2022-09-16 16:11 | disposition home or self-care (01) ==
LOC: LBN 16:10
PROVIDERS: Visit Provider Physician Assistant Medical
DX: J02.9 Acute pharyngitis, unspecified (principal); Z20.822 Contact with and (suspected) exposure to COVID-19
CPT/HCPCS: 87635

== ENCOUNTER 2024-11-28 07:50 | Emergency (ER) | payer MEDICARE, SELFPAY ==
[2024-11-28 07:52] VITALS: BP 175/76; PULSE 68; RESP 15; TEMP 36.6; O2SAT 97
--- NOTE | 2024-11-28 08:00 | DI.US_ITS ---
Exam(s) US LOWER EXTREMITY VENOUS LT EXAM: US LOWER EXTREMITY VENOUS LT CLINICAL HISTORY: swelling behind knee TECHNIQUE: Left lower extremity venous ultrasound performed using grayscale, color-flow, and spectral Doppler analysis. COMPARISON: No exams were available for comparison FINDINGS: The left common femoral, femoral and popliteal veins demonstrate normal compressibility, augmentation, and color Doppler. The posterior tibial and peroneal veins are patent. The saphenofemoral junction is unremarkable. There is a 1.7 x 1.2 x 1.4 cm cyst in the popliteal fossa. The soft tissues are u nremarkable. IMPRESSION: 1. No evidence of a left lower extremity DVT. 2. 1.7 x 1.2 x 1.4 cm Newton cyst. DATA REPOSITORY:
--- NOTE | 2024-11-28 08:05 | ED.GENADUL_ITS ---
Discharge Plan Disposition Patient Disposition: Home Condition: Stable Discharge Details Clinical Impression: Newton's cyst of knee Primary Care Provider: Carisa,Local ED Provider: Judy Bowens Home Meds and New Rx's Prescriptions: No Action multivitamin Tablet 1 tab PO DAILY rosuvastatin [Crestor] 5 mg Tablet 10 mg PO DAILY calcium carbonate-vitamin D3 [Calcium 500 + D] 500 mg(1,250mg) -200 unit Tablet 1 tab PO DAILY acetaminophen 500 mg tablet 500 mg PO Q6H PRN (Reason: pain) Qty: 60 2RF losartan 25 mg tablet 12.5 mg PO DAILY omeprazole 40 mg capsule,delayed release(DR/EC) 40 mg PO .QOD Patient Comments: TAKE ONE CAPSULE BY MOUTH TWICE A DAY FOR GASTRIC ULCER Discharge Instructions Instructions: Newton's Cyst (DC) Additional Instructions: Use Carmelo wrap for compression. Take Tylenol and/or Motrin as needed for pain. Follow-up with orthopedics. Referrals: Don Mendes MD [ [facility] STAFF PHYSICIAN, Orthopaedic Surgical] Clinical Impression: Newton's cyst of knee Discharge Data Discharge Physician: Judy Bowens [facility] General Date/Time Provider Initiated Documentation: 11/28/24 07:56 . HPI Narrative: 79-year-old female presents for evaluation of pain behind left knee. Patient states that the pain and swelling started 3 to 4 days ago. Pain does radiate up her leg at this time. There is no erythema or warmth. No known trauma. No known tick bites or rashes. No history of blood clots. She denies any chest pain or shortness of breath. She is not on any blood thinners. Related Data Home Medications ?Medication ?Instructions ?Recorded ?Confirmed calcium 500 mg (as 1 tab PO DAILY 10/17/1909/17 carbonate)-vitamin D3 5 mcg (200 unit) tablet (Calcium 500 + D) multivitamin 1 tab PO DAILY 10/17/1909/17 rosuvastatin 5 mg tablet (Crestor) 10 mg PO DAILY 09/2511/28/24 acetaminophen 500 mg tablet 500 mg PO Q6H PRN pain #60 tabs 11/25/21 11/28/24 losartan 25 mg tablet 12.5 mg PO DAILY 12/26/21 omeprazole 40 mg capsule,delayed 40 mg PO .QOD 5 11/28/24 release Previous Rx's ?Medication ?Instructions ?Recorded acetaminophen 500 mg tablet 500 mg PO Q6H PRN pain #60 tabs 11/25/21 Allergies Allergy/AdvReac Type Severity Reaction Status Date / Time Penicillins Allergy Hives Verified 11/28/24 07:57 General Stated Complaint: Vascular KEITH: 3 Review of Systems Narrative: Remainder of review of systems otherwise negative except for as noted in the HPI x 5. Exam Narrative Exam Narrative: General: non-toxic, no respiratory distress, comfortable HEENT: normocephalic, atraumatic, lids and lashes normal, PERRL, EOMI, anicteric sclera, no conjunctival injection, moist oral mucosa Musculoskeletal: Swelling to the left popliteal fossa without erythema or warmth, it is tender to palpation, full range of motion of left knee, 2+ dorsal pedal pulses, sensation tact, otherwise full range of motion of arms and legs, no tenderness to palpation. no clubbing, cyanosis, or edema Neurologic: appropriate for age, strength normal Psych: alert and oriented Skin: no petechiae, no lesions, warm and dry Course Vital Signs Vital signs: Vital Signs Temperature 36.6 C 11/28/24 07:52 Pulse 68 11/28/24 07:52 Respiratory Rate 15 11/28/24 07:52 Blood Pressure 175/76 H 11/28/24 07:52 Pulse Oximetry 97 11/28/24 07:52 Temperature 36.6 C 11/28/24 07:52 Temperature Source Oral 11/28/24 07:52 Pulse 68 11/28/24 07:52 Respiratory Rate 15 11/28/24 07:52 Blood Pressure 175/76 H 11/28/24 07:52 Blood Pressure Position Sitting 11/28/24 07:52 Pulse Oximetry 97 11/28/24 07:52 Oxygen Delivery Method Room Air 11/28/24 07:52 Oxygen Flow Rate 0 11/28/24 07:52 Pain Level 5 11/28/24 07:52 Medical Decision Making 79-year-old female presents for evaluation of pain and swelling behind left knee for the last 4 days. Ultrasound of left lower extremity shows Newton's cyst. No DVT. Patient given Carmelo bandage for compression. She will continue symptomatic treatment. Have referred to orthopedics. She understands indications to return. [facility] All Active Problems (Updated 11/28/24 @ 09:10 by Judy Bowens MD) Newton's cyst of knee (Acute) Intra-articular fracture of distal end of left radius with volar angulation (Acute) Medical History HLD (hyperlipidemia) HTN (hypertension) Surgical History Status post Mohs surgery History of cataract surgery Social History Smoking/Tobacco Use Status: Former Tobacco Use Quit Date: 04/26/75 Smoking risk assessment performed?: Yes Alcohol Intake: current Alcohol Intake frequency: 0-2 drinks per day Alcohol type: wine Substance use type: does not use Do you feel safe at home: Yes Do you feel safe in your relationship?: Yes PAWSS Have you Been Recently Intoxicated or Drunk Within the Last 30 days?: No Have you Ever Experienced Previous Episodes of Alcohol Withdrawal?: No Have you ever Experienced Withdrawal Seizures?: No Have you ever Experienced Delirium Tremens(DT)s?: No Have you ever undergone Alcohol Rehabilitation Treatment (i.e, inpt ot outpatient treatment programs)?: No Have you ever Experienced Blackouts?: No Have you ever Combined Alcohol with other Downers within the last 90 days?: No Have you ever Combined Alcohol with any other Substance of Abuse during the last 90 days?: No Result: 0
[2024-11-28 09:00] VITALS: RESP 16
== END 2024-11-28 10:06 | disposition home or self-care (01) ==
PROVIDERS: Emergency Provider Emergency Medicine Emergency Medical Services
DX: M25.562 Pain in left knee (principal); M71.22 Synovial cyst of popliteal space [Baker], left knee; I10 Essential (primary) hypertension; E78.5 Hyperlipidemia, unspecified; Z87.891 Personal history of nicotine dependence
CPT/HCPCS: 99284; 93971; 99283